=== PATIENT | female | born 1945 ===

== ENCOUNTER 2023-01-19 11:45 | Inpatient (IN) | payer OTHER ==
[~2023-01-19] VITALS: Ht 172.7 cm; Wt 83.9 kg
[2023-01-23 14:04] LABS: HEMATOCRIT 38.2 % (36.0-45.00); HEMOGLOBIN 12.8 g/dL (12.0-15.00); MEAN CELL VOLUME 89.4 fL (80.00-100.00); MEAN CORPUSCULAR HEMOGLOBIN 29.9 pg (27.00-32.0); MEAN CORPUSCULAR HGB CONC 33.5 g/dl (32.0-36.0); PLATELET COUNT 203 K/uL (150-450); RED BLOOD COUNT 4.28 M/uL (4.00-6.00); RED CELL DISTRIBUTION WIDTH 13.2 % (11.5-14.5)
[2023-01-23 14:33] LABS: ALBUMIN 3.9 gm/dL (3.4-5.0); CALCIUM 8.8 mg/dL (8.5-10.1); CREATININE SERUM 0.89 mg/dL (0.55-1.02); GFR 61.67; MAGNESIUM 2.3 mg/dL (1.8-2.4); PHOSPHOROUS 3.4 mg/dL (2.5-4.9); POTASSIUM 3.64 mEq/L (3.5-5.1)
[2023-01-24 08:00] LABS: HEMATOCRIT 35.4 % (36.0-45.00); HEMOGLOBIN 12.2 g/dL (12.0-15.00); MEAN CELL VOLUME 88.6 fL (80.00-100.00); MEAN CORPUSCULAR HEMOGLOBIN 30.4 pg (27.00-32.0); MEAN CORPUSCULAR HGB CONC 34.3 g/dl (32.0-36.0); RED CELL DISTRIBUTION WIDTH 13.4 % (11.5-14.5)
[2023-01-24 09:03] LABS: PLATELET COUNT 136 K/uL (150-450)
[2023-01-25 08:37] LABS: HEMOGLOBIN 12.3 g/dL (12.0-15.00); MEAN CELL VOLUME 88.3 fL (80.00-100.00); MEAN CORPUSCULAR HEMOGLOBIN 30.3 pg (27.00-32.0); MEAN CORPUSCULAR HGB CONC 34.3 g/dl (32.0-36.0); PLATELET COUNT 171 K/uL (150-450); RED BLOOD COUNT 4.08 M/uL (4.00-6.00); RED CELL DISTRIBUTION WIDTH 13.3 % (11.5-14.5)
[2023-01-25 09:14] LABS: ALBUMIN 3.5 gm/dL (3.4-5.0); CALCIUM 8.5 mg/dL (8.5-10.1); CREATININE SERUM 0.44 mg/dL (0.55-1.02); GFR 139.03; MAGNESIUM 1.9 mg/dL (1.8-2.4); POTASSIUM 3.71 mEq/L (3.5-5.1)
[2023-01-25 09:42] LABS: PHOSPHOROUS 1.8 mg/dL (2.5-4.9)
[2023-01-26 07:38] LABS: HEMATOCRIT 35.3 % (36.0-45.00); HEMOGLOBIN 12.3 g/dL (12.0-15.00); MEAN CELL VOLUME 88.8 fL (80.00-100.00); MEAN CORPUSCULAR HEMOGLOBIN 30.8 pg (27.00-32.0); MEAN CORPUSCULAR HGB CONC 34.7 g/dl (32.0-36.0); PLATELET COUNT 176 K/uL (150-450); RED BLOOD COUNT 3.98 M/uL (4.00-6.00)
[2023-01-26 08:07] LABS: ALBUMIN 3.2 gm/dL (3.4-5.0); CALCIUM 8.3 mg/dL (8.5-10.1); CREATININE SERUM 0.42 mg/dL (0.55-1.02); GFR 146.69; MAGNESIUM 2.1 mg/dL (1.8-2.4); PHOSPHOROUS 2.4 mg/dL (2.5-4.9); POTASSIUM 3.43 mEq/L (3.5-5.1)
[2023-01-27 06:48] LABS: HEMATOCRIT 35.7 % (36.0-45.00); HEMOGLOBIN 12.5 g/dL (12.0-15.00); MEAN CELL VOLUME 87.4 fL (80.00-100.00); MEAN CORPUSCULAR HEMOGLOBIN 30.6 pg (27.00-32.0); PLATELET COUNT 198 K/uL (150-450); RED BLOOD COUNT 4.08 M/uL (4.00-6.00)
[2023-01-27 06:58] LABS: ALBUMIN 3.3 gm/dL (3.4-5.0); CALCIUM 8.9 mg/dL (8.5-10.1); CREATININE SERUM 0.51 mg/dL (0.55-1.02); GFR 117.25; MAGNESIUM 1.9 mg/dL (1.8-2.4); PHOSPHOROUS 3.3 mg/dL (2.5-4.9); POTASSIUM 4.05 mEq/L (3.5-5.1)
[2023-01-27] MEDS ORDERED: LIPITOR40 M1 PO (16:32)
[2023-01-27] MEDS ORDERED: TOPROL XL25 M1 PO (16:32)
[2023-01-27] MEDS ORDERED: COZAAR25 MG PO (16:33)
[2023-01-27] MEDS ORDERED: VITAMIN D3250 MCG PO (16:34)
[2023-01-27] MEDS ORDERED: [UNRECOGNIZED DRUG - OTHER] (16:35)
== END 2023-01-28 15:34 | disposition home or self-care (01) | DRG 330 ==
LOC: SURH 01-23 05:52 → O/R 01-23 05:52 → SURH 01-23 07:00
PROVIDERS: ADMIT Colon & Rectal Surgery; ATTEND Colon & Rectal Surgery
PROC: 0DBP4ZZ Excision of Rectum, Percutaneous Endoscopic Approach (ICD-10-PCS; 2023-01-23)
PROC: 0DJD8ZZ Inspection of Lower Intestinal Tract, Via Natural or Artificial Opening Endoscopic (ICD-10-PCS; 2023-01-23)
PROC: 3E0F7SF Introduction of Other Gas into Respiratory Tract, Via Natural or Artificial Opening (ICD-10-PCS; 2023-01-23)
PROC: 0DTN4ZZ Resection of Sigmoid Colon, Percutaneous Endoscopic Approach (ICD-10-PCS; principal; 2023-01-23 07:00)
DX: K57.32 Diverticulitis of large intestine without perforation or abscess without bleeding (principal); L03.311 Cellulitis of abdominal wall; L53.8 Other specified erythematous conditions; R10.32 Left lower quadrant pain; R00.1 Bradycardia, unspecified